=== PATIENT | male | born 1960 | race African-American/Black ===

== ENCOUNTER 2016-07-10 14:48 | Emergency (ER) | payer OTHER ==
--- NOTE | 2016-07-11 01:56 | ED ORDER SUMMARY ---
..... Patient: ZAMZAM MOODY OrderSheet Located Within [facility] VisitID: [id number] [address] [place] [address] 55y, M Registration Date/Time: 07/10/2016 ORDER SHEET Weight: 68.0 kg (estimated) Allergies: No Known Drug Allergy GENERAL ORDERS: CBC w Diff Urgent (14:50 07/10/2016 HBivens A.R.N.P.) (Ack 15:04 LNations ER Tech1) (15:05 KHoerner) CMP Urgent (14:50 07/10/2016 HBivens A.R.N.P.) (Ack 15:04 LNations ER Tech1) (15:05 KHoerner) Urine Drug Screen Urgent (14:50 07/10/2016 HBivens A.R.N.P.) (Ack 15:04 LNations ER Tech1) (15:12 JSanders R.N.) UA-Culture if indicated Urgent (14:50 07/10/2016 HBivens A.R.N.P.) (Ack 15:05 KHoerner) (15:12 JSanders R.N.) Ethyl Alcohol Urgent (14:50 07/10/2016 HBivens A.R.N.P.) (15:05 KHoerner) Salicylate Level Urgent (14:50 07/10/2016 HBivens A.R.N.P.) (15:05 KHoerner) Acetaminophen Level Urgent (14:50 07/10/2016 HBivens A.R.N.P.) (15:05 KHoerner) MEDICATION ORDERS: IV FLUIDS: ORDER SHEET NOTES: [Electronically signed by Vandana Cardoso R.N. (02:04 07/11/2016)] [Electronically signed by Mauro Feng MD (03:04 07/11/2016)] [Electronically locked/signed by Vandana Cardoso R.N. (02:04 07/11/2016)]
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
--- NOTE | 2016-07-11 01:56 | ED ORDER SUMMARY ---
..... Patient: ZAMZAM MOODY OrderSheet Located Within [facility] VisitID: [id number] [address] [place] [address] 55y, M Registration Date/Time: 07/10/2016 ORDER SHEET Weight: 68.0 kg (estimated) Allergies: No Known Drug Allergy GENERAL ORDERS: CBC w Diff Urgent (14:50 07/10/2016 HBivens A.R.N.P.) (Ack 15:04 LNations ER Tech1) (15:05 KHoerner) CMP Urgent (14:50 07/10/2016 HBivens A.R.N.P.) (Ack 15:04 LNations ER Tech1) (15:05 KHoerner) Urine Drug Screen Urgent (14:50 07/10/2016 HBivens A.R.N.P.) (Ack 15:04 LNations ER Tech1) (15:12 JSanders R.N.) UA-Culture if indicated Urgent (14:50 07/10/2016 HBivens A.R.N.P.) (Ack 15:05 KHoerner) (15:12 JSanders R.N.) Ethyl Alcohol Urgent (14:50 07/10/2016 HBivens A.R.N.P.) (15:05 KHoerner) Salicylate Level Urgent (14:50 07/10/2016 HBivens A.R.N.P.) (15:05 KHoerner) Acetaminophen Level Urgent (14:50 07/10/2016 HBivens A.R.N.P.) (15:05 KHoerner) MEDICATION ORDERS: IV FLUIDS: ORDER SHEET NOTES: [Electronically signed by Vandana Cardoso R.N. (02:04 07/11/2016)] [Electronically signed by Mauro Feng MD (03:04 07/11/2016)] [Electronically locked/signed by Vandana Cardoso R.N. (02:04 07/11/2016)]
--- NOTE | 2016-07-11 03:04 | ED MED RECONCILIATION SUMMARY ---
Patient: ZAMZAM MOODY Medication Reconciliation Report [facility] VisitID: [id number] [address] [place] [address] 55y, M Registration Date/Time: 07/10/2016 Weight: 68.0 kg Height/Length: 74 in. BMI: 19.3 ALLERGIES: No Known Drug Allergy The patient's Home Medications are listed below: NONE. The source(s) of the original Home Medication information: Not obtained. The following Medications were given to the patient in the Emergency Department: None. The following Medications were prescribed to the patient: None.
--- NOTE | 2016-07-11 03:04 | ED MAR SUMMARY ---
..... Medication Administration Record [facility] [address] [place], [place] [id number] Patient: ZAMZAM MOODY Visit ID: [id number] 55y, M Weight: 68.0 kg Height/Length: 74 in BMI: 19.3 ALLERGIES: No Known Drug Allergy
--- NOTE | 2016-07-11 03:04 | ED MED RECONCILIATION SUMMARY ---
Patient: ZAMZAM MOODY Medication Reconciliation Report [facility] VisitID: [id number] [address] [place] [address] 55y, M Registration Date/Time: 07/10/2016 Weight: 68.0 kg Height/Length: 74 in. BMI: 19.3 ALLERGIES: No Known Drug Allergy The patient's Home Medications are listed below: NONE. The source(s) of the original Home Medication information: Not obtained. The following Medications were given to the patient in the Emergency Department: None. The following Medications were prescribed to the patient: None.
--- NOTE | 2016-07-11 03:04 | ED MAR SUMMARY ---
..... Medication Administration Record [facility] [address] [place], [place] [id number] Patient: ZAMZAM MOODY Visit ID: [id number] 55y, M Weight: 68.0 kg Height/Length: 74 in BMI: 19.3 ALLERGIES: No Known Drug Allergy
--- NOTE | 2016-07-11 03:04 | ED DISCHARGE INSTRUCTIONS ---
Patient: ZAMZAM MOODY General Instructions [facility] VisitID: [id number] [address] [place] [address] 55y, M Registration Date/Time: 07/10/2016 Normal exam. INSTRUCTIONS (cleared to book for prison). Warnings: Further evaluation is necessary. GENERAL WARNINGS: Return or contact your physician immediately if your condition worsens or changes unexpectedly, if not improving as expected, or if other problems arise. Understanding of the discharge instructions verbalized by patient. ADDITIONAL INFORMATION [facility] Clearance You have been evaluated today for any illness or injury that may require special attention while you are in prison. It appears that your condition is stable at this time. You have been medically cleared for prison. Follow any special advice given regarding the care of any illness or injury present. Notify prison personnel if there is any worsening of your symptoms or if new symptoms appear. When you are released from prison, follow up with your own medical doctor or the clinic that you have been referred to. If you do not know where to go after you are released, contact us for referral information. You have been given the following additional information: [facility] Clearance (Electronically signed by Mauro Feng MD 07/11/2016 3:04)
--- NOTE | 2016-07-11 03:04 | ED DISCHARGE INSTRUCTIONS ---
Patient: ZAMZAM MOODY General Instructions [facility] VisitID: [id number] [address] [place] [address] 55y, M Registration Date/Time: 07/10/2016 Normal exam. INSTRUCTIONS (cleared to book for prison). Warnings: Further evaluation is necessary. GENERAL WARNINGS: Return or contact your physician immediately if your condition worsens or changes unexpectedly, if not improving as expected, or if other problems arise. Understanding of the discharge instructions verbalized by patient. ADDITIONAL INFORMATION Long Term Clearance You have been evaluated today for any illness or injury that may require special attention while you are in prison. It appears that your condition is stable at this time. You have been medically cleared for prison. Follow any special advice given regarding the care of any illness or injury present. Notify prison personnel if there is any worsening of your symptoms or if new symptoms appear. When you are released from prison, follow up with your own medical doctor or the clinic that you have been referred to. If you do not know where to go after you are released, contact us for referral information. You have been given the following additional information: Long Term Clearance (Electronically signed by Mauro Feng MD 07/11/2016 3:04)
== END 2016-07-11 02:00 ==
LOC: ED SRH 14:48
DX: Z02.89 Encounter for other administrative examinations (principal)
CPT/HCPCS: 90004; 90100; 92010; 92760; 92761; 92762; 92763; 92764; 92765; 92766; 92767; 92780; 95059; 97000